=== PATIENT | male | born 1985 | race Caucasian/White ===

== ENCOUNTER 2017-01-29 14:28 | Inpatient (IN) | payer BC ==
[~2017-01-29] VITALS: Ht 180.3 cm; Wt 65.9 kg
--- NOTE | ~2017-01-29 | WRIGHTHP ---
[place], [place] PATIENT HISTORY AND PHYSICAL EXAM [facility]: [id number] UNIT #: [id number] ROOM: 526 DOCTOR: MAR ROBBINS DO BIRTHDATE: [birth year] DOS: 01/29/2017 PRIMARY CARE PHYSICIAN: Dr[facility]. The patient was seen and evaluated with the resident on January 29, 2017. Please see the resident's note for further details. ASSESSMENT: 1. Alcohol intoxication. 2. Possible seizure-like activity. 3. History of seizure-like activity associated with alcohol intoxication and withdrawal in the past. Today's episode was similar to past episodes. 4. Abdominal pain, possibly secondary to gastritis. 5. Tobacco abuse. 6. Anxiety. 7. Depression. 8. History of delirium tremens in the past. PLAN: We will continue to monitor for seizure activity, continue Librium protocol. A CT of the head will be ordered for evaluation of the seizure. A CT of the abdomen and pelvis will be ordered for evaluation of the abdominal pain. Pepcid and Protonix will be started for the presumed gastritis. MAR ROBBINS DO CM:HISPHYS:PATIENT HISTORY AND PHYSICAL EXAMINATION 19 42 MAR ROBBINS DO 01/29/171843 interface
[~2017-01-29 14:28] MED LIST: ATIVAN1 MG PO; LORAZEPAM1 MG PO; NATURE'S BLEND F1 MG PO; ROBAXIN750 MG PO; THERA TABS1 TAB PO; TRAMADOL HCL50 MG PO; ULTRAM50 MG PO; VICODIN 5/500 505 MG PO; VITAMIN B-11 TAB PO; ZOFRAN ODT4 MG SL
[2017-01-29 14:54] VITALS: BP 137/80
[2017-01-29] MEDS ORDERED: ATIVAN1 MG PO (14:56)
[2017-01-29 15:25] LABS: BASO # 0.1 10*3/uL (0.0-0.1); BASO % 1.1 % (0.0-1.0); EOS % 0.7 % (1.0-4.0); HEMATOCRIT 45.4 % (42.0-52.0); HEMOGLOBIN 15.7 g/dl (14.0-18.0); LYMPH # 2.2 10*3/uL (1.3-4.4); LYMPH % 38.6 % (27.0-41.0); MEAN CELL VOLUME 92.7 fl (80.0-94.0); MEAN CORPUSCULAR HGB CONC 34.6 g/dl (33.0-37.0); MEAN PLATELET VOLUME 8.7 fl (9.6-12.3); MONO # 0.4 10*3/uL (0.1-1.0); NEUT % 52.2 % (47.0-73.0); PLATELET COUNT AUTOMATED 256 10*3/uL (130-400); RED CELL DISTRI WIDTH 12.8 % (0-14.5); WHITE BLOOD COUNT 5.7 10*3/uL (4.8-10.8)
[2017-01-29 15:28] LABS: BILIRUBIN NEGATIVE (NEGATIVE); BLOOD NEGATIVE (NEGATIVE); CLARITY CLEAR (CLEAR); COLOR YELLOW (YELLOW); GLUCOSE NEGATIVE (NEGATIVE); KETONE NEGATIVE (NEGATIVE); LEUKO ESTERASE NEGATIVE (NEGATIVE); NITRITE NEGATIVE (NEGATIVE); PROTEIN NEGATIVE (NEGATIVE); SPECIFIC GRAVITY <= 1.005 (1.005-1.030); UROBILINOGEN 0.2 E.U./dl (0.2-1.0)
[2017-01-29 15:43] LABS: ALBUMIN 4.3 gm/dl (3.1-4.5); ALKALINE PHOSPHATASE 89 U/L (45-117); BILIRUBIN, TOTAL 0.6 mg/dl (0.2-1.0); BUN 10 mg/dl (7-24); CARBON DIOXIDE 30 mmol/L (21-32); CHLORIDE 105 mmol/L (98-107); EST GLOM FILT AFRICAN AMERICAN > 60 ml/min; GLUCOSE 96 mg/dL (65-99); POTASSIUM 4.2 mmol/L (3.5-5.1); SGOT/AST 46 IU/L (3-35); SGPT/ALT 21 U/L (12-78); SODIUM 144 mmol/L (136-145); TOTAL PROTEIN 7.3 gm/dL (6.4-8.2)
[2017-01-29 16:27] LABS: URINE REFLEX COMMENT NO (NO); WBC 0-2 wbc/hpf (0-5)
[2017-01-29 17:44] VITALS: BP 128/78
[2017-01-29 18:00] VITALS: BP 122/67
[2017-01-29 18:41] VITALS: BP 122/67
[2017-01-29] MEDS ORDERED: ATARAX,VISTARIL50 MG PO (18:56)
[2017-01-29 20:26] VITALS: BP 121/58
[2017-01-30] VITALS: BP 118/48
[2017-01-30 06:46] LABS: BASO # 0.1 10*3/uL (0.0-0.1); BASO % 0.9 % (0.0-1.0); EOS # 0.1 10*3/uL (0.0-0.4); EOS % 1.8 % (1.0-4.0); HEMATOCRIT 40.7 % (42.0-52.0); HEMOGLOBIN 14.1 g/dl (14.0-18.0); LYMPH % 36.9 % (27.0-41.0); MEAN CELL VOLUME 93.3 fl (80.0-94.0); MEAN CORPUSCULAR HGB 32.3 pg (27.0-31.0); MEAN CORPUSCULAR HGB CONC 34.6 g/dl (33.0-37.0); MEAN PLATELET VOLUME 9.5 fl (9.6-12.3); MONO # 0.5 10*3/uL (0.1-1.0); NEUT # 2.8 10*3/uL (2.3-7.9); NEUT % 50.7 % (47.0-73.0); PLATELET COUNT AUTOMATED 213 10*3/uL (130-400); RED BLOOD COUNT 4.36 10*6/uL (4.50-5.90); RED CELL DISTRI WIDTH 12.5 % (0-14.5); WHITE BLOOD COUNT 5.5 10*3/uL (4.8-10.8)
[2017-01-30 07:12] LABS: ALBUMIN 3.7 gm/dl (3.1-4.5); ALKALINE PHOSPHATASE 92 U/L (45-117); BILIRUBIN, TOTAL 1.1 mg/dl (0.2-1.0); BUN 11 mg/dl (7-24); CHLORIDE 103 mmol/L (98-107); EST GLOM FILT AFRICAN AMERICAN > 60 ml/min; GLUCOSE 93 mg/dL (65-99); MAGNESIUM 2.2 mg/dL (1.5-2.1); POTASSIUM 4.1 mmol/L (3.5-5.1); SGOT/AST 38 IU/L (3-35); SGPT/ALT 18 U/L (12-78); SODIUM 142 mmol/L (136-145); TOTAL PROTEIN 6.2 gm/dL (6.4-8.2)
[2017-01-30 07:13] LABS: CARBON DIOXIDE 29 mmol/L (21-32)
[2017-01-30 08:00] VITALS: BP 116/54
[2017-01-30 12:00] VITALS: BP 106/50
[2017-01-30 16:00] VITALS: BP 115/63
[2017-01-30] MEDS ORDERED: FAMOTIDINE20 M1 PO (17:06)
[2017-01-30] MEDS ORDERED: PANTOPRAZOLE SO40 MG PO (17:06)
== END 2017-01-30 17:45 | disposition home or self-care (01) | DRG 897 ==
LOC: ED 14:28 → EDHOLD 16:30 → 5E 16:30
PROVIDERS: Emergency Medicine; Registered Nurse
DX: F10.230 Alcohol dependence with withdrawal, uncomplicated (principal); F32.9 Major depressive disorder, single episode, unspecified; R10.9 Unspecified abdominal pain; M79.1 Myalgia; F41.9 Anxiety disorder, unspecified; F17.210 Nicotine dependence, cigarettes, uncomplicated; F10.229 Alcohol dependence with intoxication, unspecified; Z83.3 Family history of diabetes mellitus; Z82.49 Family history of ischemic heart disease and other diseases of the circulatory system; Z80.9 Family history of malignant neoplasm, unspecified; Z79.899 Other long term (current) drug therapy

== ENCOUNTER → 2018-11-13 | Outpatient (CLI) | payer OTHER ==
[~2018-11-13] MED LIST changes: +ATARAX,VISTARIL50 MG PO; +FAMOTIDINE20 M1 PO; +PANTOPRAZOLE SO40 MG PO
== END | disposition home or self-care (01) ==
LOC: MRI 10:46
DX: G25.0 Essential tremor (principal); G43.009 Migraine without aura, not intractable, without status migrainosus; R41.3 Other amnesia; R41.9 Unspecified symptoms and signs involving cognitive functions and awareness

== ENCOUNTER → 2018-12-18 | Outpatient (CLI) | payer OTHER ==
--- NOTE | ~2018-12-18 | EEG ---
[place], [place] ELECTROENCEPHALOGRAM REPORT [id number] UNIT #: [id number] ROOM: DOCTOR: CHRISTY ALBARRAN MD, JR DOS: 12/18/2018 EEG REPORT FINDINGS: This is a 33-year-old man on droperidol displayed the following underlying rhythms: Fairly well organized, synchronous, 10 Hz alpha rhythms in both posterior regions. An 18 Hz, 10 microvolt beta rhythms were noted in both precentral regions. There was symmetrical attenuation of the posterior alpha rhythm with eye opening. Hyperventilation produced no abnormalities. There was good driving to photic stimulation without abnormalities as well. The patient did become drowsy, progressing uneventfully through stages I of somnolence. Throughout this recording, there were no focal abnormalities or epileptiform discharges. IMPRESSION: Normal awake and drowsy EEG. CHRISTY ALBARRAN MD CM:EEG:ELECTROENCEPHALOGRAM REPORT [id number] CHRISTY ALBARRAN MD, JR
== END | disposition home or self-care (01) ==
LOC: CP 11:45
DX: F10.230 Alcohol dependence with withdrawal, uncomplicated (principal); R41.3 Other amnesia

== ENCOUNTER 2021-02-26 12:10 | Inpatient (IN) | payer OTHER ==
[~2021-02-26] VITALS: Ht 177.8 cm; Wt 79.4 kg
[2021-02-26 12:27] VITALS: BP 139/87
[2021-02-26 13:53] VITALS: BP 142/81
[2021-02-26 13:54] LABS: BASO # 0.1 10*3/uL (0.0-0.1); BASO % 1.4 % (0.0-1.0); EOS # 0.1 10*3/uL (0.0-0.4); EOS % 1.2 % (1.0-4.0); HEMATOCRIT 40.4 % (42.0-52.0); LYMPH # 1.4 10*3/uL (1.3-4.4); LYMPH % 19.3 % (27.0-41.0); MEAN CELL VOLUME 94.4 fl (80.0-94.0); MEAN CORPUSCULAR HGB 33.4 pg (27.0-31.0); MEAN CORPUSCULAR HGB CONC 35.4 g/dl (33.0-37.0); MEAN PLATELET VOLUME 9.2 fl (9.6-12.3); MONO # 0.9 10*3/uL (0.1-1.0); MONO % 11.7 % (3.0-9.0); NEUT # 4.8 10*3/uL (2.3-7.9); NEUT % 66.1 % (47.0-73.0); PLATELET COUNT AUTOMATED 232 10*3/uL (130-400); RED BLOOD COUNT 4.28 10*6/uL (4.50-5.90); RED CELL DISTRI WIDTH 11.4 % (0-14.5); WHITE BLOOD COUNT 7.3 10*3/uL (4.8-10.8)
[2021-02-26 14:09] LABS: ALBUMIN 3.7 gm/dl (3.1-4.5); ALKALINE PHOSPHATASE 64 U/L (45-117); BUN 13 mg/dl (7-24); CHLORIDE 101 mmol/L (98-107); CREATININE 0.78 mg/dL (0.70-1.30); POTASSIUM 3.6 mmol/L (3.5-5.1); SGOT/AST 40 IU/L (3-35); SGPT/ALT 22 U/L (12-78); SODIUM 136 mmol/L (136-145); TOTAL PROTEIN 7.4 gm/dL (6.4-8.2)
[2021-02-26 14:10] LABS: ACETAMINOPHEN (TYLENOL) < 2.0 ug/ml (10-30); ETHYL ALCOHOL < 3.0 mg/dl (<3)
[2021-02-26 14:59] VITALS: BP 140/93
[2021-02-26 17:30] LABS: BILIRUBIN Negative (Negative); BLOOD Negative (Negative); CLARITY Clear (Clear); COLOR Yellow (Yellow); GLUCOSE Negative (Negative); KETONE 3+ (Negative); LEUKO ESTERASE Negative (Negative); NITRITE Negative (Negative)
[2021-02-26 17:33] VITALS: BP 124/87
[2021-02-26 17:35] LABS: URINE AMPHETAMINES < 1000 (1000ng/ml); URINE BARBITURATES < 200 (200ng/ml); URINE BENZODIAZEPINES < 200 (200ng/ml); URINE CANNABINOIDS (THC) < 50 (50ng/ml); URINE COCAINE < 300 (300ng/ml); URINE METHADONE < 300 (300ng/ml); URINE OPIATES < 300 (300ng/ml)
[2021-02-26 17:41] LABS: MUCOUS 1+
[2021-02-26 17:48] LABS: URINE PHENCYCLIDINE < 25 (25ng/ml)
[2021-02-26 18:20] VITALS: BP 145/93
[2021-02-26] MEDS ORDERED: PROPRANOLOL HCL20 MG PO (19:27)
[2021-02-26 20:00] VITALS: BP 145/90
[2021-02-27] VITALS: BP 119/78
[2021-02-27 04:01] LABS: BILIRUBIN Negative (Negative); BLOOD Negative (Negative); CLARITY Clear (Clear); COLOR Yellow (Yellow); GLUCOSE Trace (Negative); KETONE Negative (Negative); LEUKO ESTERASE Negative (Negative); NITRITE Negative (Negative); SPECIFIC GRAVITY <= 1.005 (1.001-1.030)
[2021-02-27 08:00] VITALS: BP 108/60
[2021-02-27 12:00] VITALS: BP 110/65
[2021-02-27 16:00] VITALS: BP 118/62
[2021-02-27 20:00] VITALS: BP 123/84
[2021-02-28] VITALS: BP 164/104
[2021-02-28 00:19] VITALS: BP 120/92
[2021-02-28 08:00] VITALS: BP 109/64
[2021-02-28 12:00] VITALS: BP 116/70
[2021-02-28 16:00] VITALS: BP 118/67
[2021-02-28 20:00] VITALS: BP 131/84
[2021-03-01] VITALS: BP 132/88
[2021-03-01 08:00] VITALS: BP 124/78
== END 2021-03-01 12:11 | disposition home or self-care (01) | DRG 897 ==
LOC: ED 12:10 → 5E 14:13 → EDHOLD 14:13 → 5E 16:51
PROVIDERS: Internal Medicine; Physician Assistant; ADMIT Family Medicine; ATTEND Family Medicine
DX: F10.220 Alcohol dependence with intoxication, uncomplicated (principal); F10.230 Alcohol dependence with withdrawal, uncomplicated; F17.210 Nicotine dependence, cigarettes, uncomplicated; F41.9 Anxiety disorder, unspecified; R74.01 Elevation of levels of liver transaminase levels; Z71.6 Tobacco abuse counseling; Z78.9 Other specified health status